=== PATIENT | female | born 1945 | race Caucasian/White ===

== ENCOUNTER 2017-07-27 06:15 | Day surgery (SDC) | payer MEDICARE, OTHER ==
[~2017-07-27] VITALS: Ht 162.6 cm; Wt 69.0 kg
--- NOTE | 2017-07-27 15:41 | OR ---
[facility] [address], [place] [address] Signed DATE OF OPERATION: 07/27/2017 SURGEON: Neva Ochoa MD PREOPERATIVE DIAGNOSIS: History of left colectomy for colon cancer, 2005. POSTOPERATIVE DIAGNOSIS: Normal colon to cecum. PROCEDURE: Total colonoscopy to cecum. ANESTHESIA: Intravenous sedation, fentanyl 100 mcg, Versed 3 mg. INDICATION: This 71-year-old white woman is from [place], [place] and now a patient of Dr. Kristopher Peace. She is here for colonoscopy having last been seen in 2013. At that time, colonoscopy was normal. She underwent left colectomy by mo for colon cancer in 2005. She has no family history of colitis. Her father had polyps and her mother had colon cancer. She is symptom-free. Generally, though she has had episodes of rectal bleeding from time to time. This was not associated with anal pain. She is admitted at this time to undergo surveillance colonoscopy understanding the risks of bleeding, infection, and perforation. FINDINGS: The prep was excellent. Complete colonoscopy was undertaken to the cecum. There was no sign of polyps, diverticular formation, colitis, cancer, or other abnormality. DESCRIPTION OF PROCEDURE: The patient was brought to the endoscopy suite and placed in lateral decubitus position, given intravenous sedation to the point of slurred speech and nystagmus. Digital rectal examination was normal. An Olympus video colonoscope was passed in the rectum and manipulated throughout the colon quickly attaining intubation of the cecum. The ileocecal valve was normal. Irrigation was undertaken as needed and the scope was carefully withdrawn. Examination throughout showed no sign of abnormality specifically no polyps, diverticular formation, colitis, or cancer. The rectum was normal. Scope was removed and the patient was taken Electronically Signed By: NEVA OCHOA MD 07/27/17 1541 PATIENT NAME: NICK PALOMINO OPERATIVE REPORT DATE OF : 49 REPORT #: [id number] PHYSICIAN: NEVA OCHOA MD PCP: KRISTOPHER PEACE DO REPORT IS CONFIDENTIAL AND NOT TO BE RELEASED WITHOUT AUTHORIZATION [facility] [address], [place] [address] Signed to recovery room in good condition. CONCLUDING DIAGNOSIS: Normal colon. PLAN: Recommend repeat colonoscopy in 5 years if clinically appropriate, sooner if symptoms should occur. She will return to the ongoing care of Dr. Peace in [place], [place]. Neva Ochoa MD JM/MODL /[id number] cc: Kristopher Peace DO Copies: KRISTOPHER PEACE DO ~ Electronically Signed By: NEVA OCHOA MD 07/27/17 1541 PATIENT NAME: NICK PALOMINO OPERATIVE REPORT DATE OF : 49 REPORT #: [id number] PHYSICIAN: NEVA OCHOA MD PCP: KRISTOPHER PEACE DO REPORT IS CONFIDENTIAL AND NOT TO BE RELEASED WITHOUT AUTHORIZATION
== END 2017-07-27 09:50 | disposition home or self-care (01) ==
LOC: OPS 06:15 → DS 06:15 → OPS 08:30
PROVIDERS: Surgery
PROC: 0DJD8ZZ Inspection of Lower Intestinal Tract, Via Natural or Artificial Opening Endoscopic (ICD-10-PCS; principal; 2017-07-27 08:30)
DX: Z12.11 Encounter for screening for malignant neoplasm of colon (principal); I65.21 Occlusion and stenosis of right carotid artery; Z98.890 Other specified postprocedural states; Z85.038 Personal history of other malignant neoplasm of large intestine
CPT/HCPCS: G0105; 93880; 99153; G0500; J2250; J3010; J7120